=== PATIENT | female | born 1945 | race Caucasian/White ===

== ENCOUNTER 2016-08-25 07:55 | Emergency (ER) | payer MEDICARE ==
[2016-08-25] MEDS ORDERED: IOPAMIDOL 300 (61%) 150 ML VIAL IV ONE (07:56)
[2016-08-25] MEDS ORDERED: ONDANSETRON 4 MG/2ML 2 ML VIAL ONE (09:20)
[2016-08-25] MEDS ORDERED: KETOROLAC TROMETHAMINE 15 MG/ML VIAL ONE (09:20)
[2016-08-25] MEDS ORDERED: SODIUM CHLORIDE 0.9% 1,000 ML ONE (09:20)
[2016-08-25 09:25] LABS: ABSOLUTE NEUTROPHIL COUNT 9.3 K/mm3 (1.8-7.7); BASO % 0.3 % (0.2-1.0); EOS # 0.3 (0.0-0.5); EOS % 2.5 % (0.9-2.9); HEMATOCRIT 36.2 % (37.0-47.0); HEMOGLOBIN 11.9 gm/l (12.0-16.0); IMM NEUT% 0.3 % (0-1); LYMPH # 1.7 (1.0-4.8); LYMPH % 13.4 % (15-45); MEAN CELL VOLUME 91.9 fl (81.0-99.0); MEAN CORPUSCULAR HEMOGLOBIN 30.2 pg (27.0-31.0); MEAN CORPUSCULAR HGB CONC 32.9 g/dl (33.0-37.0); MEAN PLATELET VOLUME 9.5 fl (7.4-10.4); MONO # 1.6 (0.0-0.8); MONO % 11.9 % (4-12); NEUT % 71.6 % (43-75); PLATELET COUNT 217 K/mm3 (130-400); RED CELL DISTRIBUTION WIDTH 13.1 % (11.5-14.5); URINE BILIRUBIN NEGATIVE (NEGATIVE); URINE BLOOD NEGATIVE (NEGATIVE); URINE GLUCOSE (UA) NEGATIVE (NEGATIVE); URINE LEUKOCYTE ESTERASE 1+ (NEGATIVE); URINE NITRITE NEGATIVE (NEGATIVE); URINE PROTEIN NEGATIVE (NEGATIVE); URINE UROBILINOGEN NORMAL (0-1 mg/dl)
[2016-08-25 09:32] LABS: URINE APPEARANCE CLEAR; URINE COLOR YELLOW
[2016-08-25 09:41] LABS: URINE BACTERIA 1+; URINE RBC 0-1 /hpf
[2016-08-25 11:05] LABS: ALB/GLOB RATIO 1.5 (>1.0); ALBUMIN 4.8 gm/dL (3.5-5.7); CALCIUM 8.9 mg/dL (8.6-10.3)
--- NOTE | 2016-08-25 12:38 | CT ---
CT ABDOMEN AND PELVIS WITH CONTRAST HISTORY: Right lower quadrant pain. TECHNIQUE: Following intravenous administration of 125 mL Isovue-300, contiguous axial images were acquired from the lung bases to the ischial tuberosities. Oral contrast was not administered. COMPARISON:None. FINDINGS: LUNG BASES: Minor fibrotic atelectatic change. LIVER: No focal lesion. SPLEEN: No focal lesion. PANCREAS: No focal lesion. ADRENAL GLANDS: No mass effect. KIDNEYS: No focal lesion. No collecting system dilatation. GALLBLADDER: Present. BOWEL: Moderate fecal loading. Limited assessment of the distal colon due to decompression. No abnormal small bowel dilatation. Findings of sigmoid diverticulosis with notable eccentric wall thickening of the distal sigmoid colon with an inflamed diverticulum surrounding fatty edema, extending to the presacral region. No rim-enhancing abscess identified. APPENDIX: Normal gas-filled appendix. PELVIC ORGANS: Status post hysterectomy. No adnexal mass effect. FREE FLUID: No gross free fluid. No free air. ABDOMINOPELVIC LYMPH NODES: No abnormally enlarged lymph nodes identified. ABDOMINAL AORTA: Mild atherosclerotic calcifications. OSSEOUS STRUCTURES: Dextroconvex curvature of the spine with findings of multilevel disc degeneration and anterolisthesis and herniation at L4-5 stenosis. IMPRESSION: 1. Findings compatible with diverticulitis of the distal sigmoid colon with no rim-enhancing calcification. Nonobstructive appearance of bowel. Normal appendix. No free air or free fluid. 2. Lumbar spondylosis with disc herniation at L4-5 and associated canal stenosis. 3. Evidence of aortic atherosclerotic disease. 4. Post hysterectomy change, no adnexal mass effect. Findings discussed with Dr. Shaw of the Emergency Medicine clinical service on 08/25/2016 at 1234 hours.
[2016-08-25] MEDS ORDERED: PIPERACILLIN-TAZO PREMIX BAG 50 ML IV ONE (12:57)
== END 2016-08-25 13:38 | disposition home or self-care (01) ==
LOC: ED 07:55
DX: K57.92 Diverticulitis of intestine, part unspecified, without perforation or abscess without bleeding (principal); R10.9 Unspecified abdominal pain; I25.2 Old myocardial infarction; I10 Essential (primary) hypertension
CPT/HCPCS: 83690; 82150; 85025; 80053; 84484; 81001; 74177; 96375 ×2; 99284 ×2; 96361 ×3; 96365; J1885; J2405; J2543; J7030; Q9967